=== PATIENT | male | born 1955 | race Caucasian/White ===

== ENCOUNTER → 2024-09-16 | Outpatient (CLI) | payer MEDICARE ==
[2024-09-16 21:46] VITALS: PULSE 56; RESP 20
[2024-09-16 22:30] VITALS: PULSE 48; RESP 16
[2024-09-16 23:00] VITALS: PULSE 56; RESP 14
[2024-09-16 23:30] VITALS: PULSE 50; RESP 16
[2024-09-17] VITALS (10 sets, daily range): PULSE 46–52; RESP 12–16
== END | disposition home or self-care (01) ==
LOC: SLP 20:26
PROVIDERS: ATTEND Family Medicine
DX: G47.30 Sleep apnea, unspecified (principal)
CPT/HCPCS: 95811

== ENCOUNTER 2025-05-09 07:09 | Day surgery (SDC) | payer MEDICARE ==
[2025-05-09] VITALS (16 sets, daily range): BP systolic 108–141; BP diastolic 64–82; PULSE 65–86; RESP 12–17; TEMP 97.7–98.4
[~2025-05-09] VITALS: Ht 177.8 cm; Wt 88.5 kg
[2025-05-09 08:05] LABS: BASOPHILS # (AUTO) 0.02 K/uL (0.00-0.20); BASOPHILS % (AUTO) 0.4 % (0.0-5.0); EOSINOPHILS # (AUTO) 0.11 K/uL (0.00-0.70); HEMATOCRIT 41.2 % (42-54); IMMATURE GRANULOCYTE ABSOLUTE 0.02 K/uL (0-1); LYMPHOCYTES # (AUTO) 1.2 K/uL (1.0-4.8); LYMPHOCYTES % (AUTO) 21.4 % (21.0-51.0); MEAN CORPUSCULAR HEMOGLOBIN 31.7 pg (27.0-33.0); MEAN CORPUSCULAR HGB CONC 34.5 g/dL (32.0-36.0); MONOCYTES # (AUTO) 0.4 K/uL (0.1-1.0); MONOCYTES % (AUTO) 7.2 % (3.0-13.0); NEUTROPHILS # (AUTO) 3.7 K/uL (1.8-7.7); NEUTROPHILS % (AUTO) 68.6 % (40.0-77.0); PLATELET COUNT (AUTO) 257 K/uL (130-400); RED BLOOD CELL COUNT(AUTO) 4.48 MIL/uL (4.50-6.20); WHITE BLOOD COUNT (AUTO) 5.4 K/uL (4.8-10.8)
--- NOTE | 2025-05-09 08:19 | EKG ---
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
[2025-05-09 08:28] LABS: INR 1.08 (0.85-1.15); PARTIAL THROMBOPLASTIN TIME 26.5 SEC (26.3-35.5); PROTHROMBIN TIME 11.3 SEC (9.6-11.6)
[2025-05-09 08:44] LABS: CREATININE 0.8 mg/dL (0.5-1.3); POTASSIUM 3.8 mmol/L (3.5-5.1)
[2025-05-09] MEDS ORDERED: TAMS-55 PO (09:12)
[2025-05-09] MEDS ORDERED: APIX5TAB PO (09:12)
[2025-05-09] MEDS: LIDOCAINE HCL 2% VISCOUS 15 ML UDCUP PO ONE (09:18)
[2025-05-09] MEDS: 0.9%NACL 1000ML 1,000 ML IV SCH (09:19)
--- NOTE | 2025-05-09 09:34 | NUR ---
AMBROCIO PROBE ADVANCED PT TOLERATED WELL NAD
--- NOTE | 2025-05-09 09:38 | NUR ---
AMBROCIO FINISHED AT THIS TIME VSS NAD. PT RESTING COMFORTABLE WILL CONTINUE TO MONITOR PT.
--- NOTE | 2025-05-09 09:40 | NUR ---
DR. ONEILL/[employer] MADE AWARE AMBROCIO WAS DONE NO THROMBUS NOTED DURING PROCEDURE. SPOUSE AWARE AMBROCIO FINISHED AND PENDING ABLATION.
[2025-05-09] MEDS: FENTanyl CITRate PF 50 MCG/1 ML 2ML VIAL IVP ONE (10:03)
[2025-05-09] MEDS: MIDAZOLAM HCL 1 MG/ML 2ML VIAL IVP ONE (10:06)
[2025-05-09] MEDS ORDERED: LIDOCAINE HCL 400MG/20ML VIAL ONE (13:08)
[2025-05-09] MEDS ORDERED: SODIUM BICARB 50MEQ 50ML VIAL 50 ML ONE (13:08)
[2025-05-09] MEDS ORDERED: HEParin 10,000 UNIT/10ML (1,000 UNIT/ML) VIAL ONE ×2 (13:08→14:42)
[2025-05-09] MEDS ORDERED: HEParin-NS 1,000 UNIT/500 ML 0 ML IV ONE (13:09)
--- NOTE | 2025-05-09 13:25 | NUR ---
PT TO BATTERY PARTS ASSEMBLER AT THIS TIME SPOKE TO RN ABOUT SEDATION THAT WAS GIVEN FOR AMBROCIO
[2025-05-09] MEDS ORDERED: MIDAZOLAM HCL 1 MG/ML 2ML VIAL ONE ×3 (13:48→14:40)
[2025-05-09] MEDS ORDERED: FENTanyl CITRate PF 50 MCG/1 ML 2ML VIAL ONE (13:48)
[2025-05-09] MEDS ORDERED: ATROPINE 1MG SYG IVP ONE (13:51)
[2025-05-09] MEDS ORDERED: proPOFol 10 MG/ML 20ML VIAL IV ONE (14:54)
--- NOTE | 2025-05-09 18:44 | NUR ---
PATIENT DISCHARGED FROM FACILITY VIA WHEELCHAIR BY MADONNA VIRAMONTES AND ASSISTED INTO PRIVATE VEHICLE DRIVEN BY FAMILY
--- NOTE | 2025-05-10 06:50 | EKG ---
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1955 Requested By: ARNIE ONEILL Order Number: [id number] Reading MD: Tad Bryan Measurements Intervals [place] Rate: 74 P: 76 HI: 234 QRS: -51 QRSD: 124 T: 92 QT: 408 QTc: 454 Interpretive Statements Sinus rhythm Prolonged HI interval Probable left atrial enlargement Nonspecific IVCD with LAD Left ventricular hypertrophy Compared to ECG 05/09/2025 07:53:32 First degree AV block now present Atrial flutter no longer present AV block, advanced (high-grade) no longer present ST (T wave) deviation no longer present Myocardial infarct finding no longer present Electronically Signed On 05-10-2025 20:57:52 CDT by Tad Bryan Please click the below link to view image of tracing.
--- NOTE | 2025-05-10 09:08 | HMCSR ---
APPROVED REPORT EXAM: Transesophageal echocardiogram with color flow Doppler. INDICATION ICD: Atrial fibrillation Reason For Test : Rule out Intracardiac Thrombus. PROCEDURE 15 mL 2% Viscous Lidocaine was given as a topical anesthetic prior to the administration of the consc ious sedation. Type of Sedation: Conscious Sedation Sedation was administered by Please refer to medication administration record. . Sedation was achieved with Please refer to medication administration record. intravenously. Transesophageal probe was inserted and advanced into esophagus without difficulty by Oskar Lara MD . AMBROCIO was performed and images were obtained, probe was removed without complications. Throughout the procedure, the blood pressure, pulse oximetry, cardiac rhythm, and rate were monitored . Left Ventricle The left ventricle is normal size. There is normal left ventricular wall thickness. LVEF is 50-55%. N ot assessed. Right Ventricle The right ventricle is normal size. The right ventricular systolic function is normal. Atria The left atrium size appears mildly dilated by visual assessmnet. No left atrial appendage thrombus n oted. There is no mass or thrombus suspected in the left atrium. The right atrium size is normal. The re is no mass or thrombus suspected in the right atrium. Aortic Valve Aortic valve is trileaflet and opens well. No aortic regurgitation is present. There is no aortic abbey vular stenosis. Mitral Valve The mitral valve is normal in structure. There is trace mitral valve regurgitation noted. There is no mitral valve stenosis. Tricuspid Valve The tricuspid valve is normal in structure. There is no tricuspid valve regurgitation noted. Pulmonic Valve Pulmonic valve is not well visualized. There is no pulmonic valvular regurgitation. Great Vessels The aortic root is normal in size. Ascending aorta appears normal in size. Descending aorta appears n ormal in size. The IVC was not visualized. Pericardium There is no pericardial effusion. Conclusion The left ventricle is normal size. Estimated LVEF is 50-55% by visual assessment. The right ventricular systolic function is normal. left atrium appears mildly dilated by visual assessment. No intracardiac thrombi noted. No hemodynamically significant valvular abnormalities. There is no pericardial effusion.
== END 2025-05-09 18:45 | disposition home or self-care (01) ==
LOC: RAH 07:09 → DAH 07:20 → RAH 18:45
PROVIDERS: ATTEND Internal Medicine Cardiovascular Disease
DX: I48.3 Typical atrial flutter (principal); Z79.82 Long term (current) use of aspirin; I25.2 Old myocardial infarction; Z79.01 Long term (current) use of anticoagulants; Z79.899 Other long term (current) drug therapy
CPT/HCPCS: 93653; 80048; 85347; 85025; 85610; 85730; 36415; 93325; 93312; 99157 ×2; 93005 ×2; 99156; C1894 ×2; C1732 ×3; C1893; A4649 ×2; C1760 ×2; J3010 ×2; J3490 ×2; J7030; J1644 ×2; J2250 ×4; J2704; A4615; A4215; A4657; A4222; A4221; A4663; A4216; A4606; A4223 ×3; 99152; J0461; G0500